=== PATIENT | female | born 1980 | race Caucasian/White ===

== ENCOUNTER 2018-09-20 05:07 | Inpatient (IN) ==
--- NOTE | 2018-09-11 12:16 | Anesthesiology Consultation ---
Date of Service September 11, 2018 Assessment & Plan (1) Encounter for pre-operative examination: Chart Review Chart Review: Acceptable Risk for Surgery and Patient seen in Pre Admission Testing Consults Requested none Teaching & Discussion Pre-Anesthesia Teaching/Discussion Notes: Instructed NPO after midnight before surgery, except medications with 15 cc of water. Medication instructions provided according to the PAT guidelines. History Surgery Operation Date: 09/20/18 07:00 Proposed Procedures p Laparoscopic Assisted Vaginal Hysterectomy, Possible Laparotomy and Cystoscopy - Mo Will MD Height/Weight Height: 5 ft 8 in Weight: 77.6 kg Allergies Allergy/AdvReac Type Severity Reaction Status Date / Time Penicillins Allergy PT WAS Verified 09/06/18 13:43 TOLD SHE HAD A "MODERATE RXN" codeine AdvReac ITCHING Verified 09/06/18 13:43 Medications Home Medications Medication Instructions Recorded Confirmed Last Taken fluticasone [Flonase Allergy 1 spray INTRANASAL DAILY PRN 09/06/18 09/06/18 Unknown Relief] ibuprofen 800 mg PO TID PRN 09/06/18 09/06/18 Unknown lactobacillus combination no.4 3,000 mmu cells PO QAM 09/06/18 09/06/18 Unknown [Probiotic] loratadine 10 mg PO QAM 09/06/18 09/06/18 Unknown Past Medical History Medical History Eczema IBS (irritable bowel syndrome) Kidney stones Medical marijuana use Uses each evening, vaporizes Seasonal allergies Past Surgical History Surgical History History of dental surgery History of laparoscopy DIAGNOSTIC Past Anesthesia History No Hx of Anesthesia Complications and No Family Hx of Anesthesia Complications History of PONV No Motion Sickness Screening History of Motion Sickness: No Social History Smoking Status: Current every day smoker Smoking cigarettes per day: Smokes 1-2 cigarettes per day Do You Dip or Chew Tobacco: No Hx Alcohol Use: Yes Alcohol type: other alcohol intake frequency: holidays/special occasions only Alcohol Intake Frequency Comment: SOCIAL DRINK Hx Substance Use: No substance use type: does not use Exercise / Class Metabolic Activity II 4-5 Yardwork/Stairs/Walk up hill (Able to climb FOS. Denies CP or SOB. ) Review of Systems Patient denies chest pain, shortness of breath, dyspnea on exertion, joint pain , reflux (rare), cough, wheezing, palpitations. Physical Exam Vital Signs BP: 125/64 P: 72 R: 16 T: 98.3 SPO2: 98% on RA ENMT Thyromental Distance: > or= 3.5 Finger Breadths (4) Mallampati Class: II Neck normal visual inspection and trachea midline; neck extension not limited Respiratory normal respiratory effort Auscultation: lungs clear to auscultation bilaterally Cardiovascular Rate/Rhythm: regular rate and regular rhythm Heart Sounds: no murmur Vessels: no carotid bruit Neurologic moves all extremities Psychiatric Orientation: alert and oriented x 3 Testing Laboratory Results 09/11/18 12:30
--- NOTE | 2018-09-11 12:22 | PAT Medication Instructions ---
Medication Instructions Date of Service September 11, 2018 Home Medications fluticasone [Flonase Allergy] 1 spray INTRANASAL DAILY NEEDED ibuprofen 800 mg PO TID NEEDED lactobacillus combination no.4 [Probiotic] 3,000 mmu cells PO QAM loratadine 10 mg PO QAM ASK your surgeon for instructions ibuprofen 800 mg PO TID NEEDED DO NOT take the morning of surgery lactobacillus combination no.4 [Probiotic] 3,000 mmu cells PO QAM fluticasone [Flonase Allergy] 1 spray INTRANASAL DAILY NEEDED Take morning of surgery With a small sip of water, OTHERWISE NOTHING TO EAT OR DRINK AFTER MIDNIGHT: loratadine 10 mg PO QAM Take evening before surgery Medical Marijuana Other Notes If you have any questions please call us at [phone] or [phone] or [phone] or [phone]
[2018-09-11 13:20] LABS: Basophils # (auto) 0.01 K/uL (0-0.2); Basophils % (auto) 0.2 %; Eosinophils # (auto) 0.08 K/uL (0-0.5); Eosinophils % (auto) 1.5 %; Hematocrit (blood only) 36.4 % (37-47); Hemoglobin 12.1 g/dL (12.0-16.0); Immature Granulocytes # (auto) 0.01 K/uL (0.00-0.02); Immature Granulocytes % (auto) 0.2 %; Lymphocytes # (auto) 1.28 K/uL (1.2-3.4); Lymphocytes % (auto) 23.7 %; Mean Corpuscular Hgb Conc 33.2 g/dL (32-36); Mean Corpuscular Volume 95.3 fL (80-100); Mean Platelet Volume 10.8 fL (7.4-10.4); Monocytes # (auto) 0.46 K/uL (0.11-0.59); Monocytes % (auto) 8.5 %; Neutrophils # (auto) 3.57 K/uL (1.4-6.5); Neutrophils % (auto) 65.9 %; Platelet Count 181 K/uL (130-400); RDW Coefficient of Variation 13.2 % (11.5-14.5); RDW Standard Deviation 45.9 fL (36.4-46.3); Red Blood Count 3.82 M/uL (4.2-5.4); White Blood Count 5.41 K/uL (4.8-10.8)
[~2018-09-20 05:07] MED LIST: CEFAZOLIN - ALLERGY NOTED TO ORDERED MEDICATION SCH
[2018-09-20] MEDS ORDERED: CEFAZOLIN 2000MG 2,000 MG/15 ML SYR IV SCH ×2 (06:00→07:00)
[2018-09-20] MEDS ORDERED: LR 15ML/HR IV SCH (06:00)
[2018-09-20] MEDS ORDERED: LACTATED RINGER'S 1,000 ML IV SCH ×2 (06:00→11:00)
[2018-09-20] MEDS ORDERED: PROPOFOL IV EMULSION 10 MG/ML 20 ML VIAL IV ONE (06:29)
[2018-09-20] MEDS ORDERED: LIDOCAINE HCL 2% 2 ML VIAL/AMP(20MG/ML) INFIL ONE (06:29)
[2018-09-20] MEDS ORDERED: ONDANSETRON INJ 2 MG/ML 2 ML VIAL ONE (06:29)
[2018-09-20] MEDS ORDERED: DEXAMETHASONE SOD INJ 4 MG/ML VIAL ONE (06:29)
[2018-09-20] MEDS ORDERED: GLYCOPYRROLATE 0.2 MG/ML VIAL ONE ×2 (06:29→10:17)
[2018-09-20] MEDS ORDERED: NEOSTIGMINE METHYLSULFATE 5 MG/5 ML SYR ONE (06:29)
[2018-09-20] MEDS ORDERED: MIDAZOLAM HCL 1 MG/ML 2ML VIAL ONE (06:30)
[2018-09-20] MEDS ORDERED: fentaNYL citrate 100 MCG/2 ML VIAL ONE ×3 (06:30→12:22)
[2018-09-20] MEDS ORDERED: ROCURONIUM BROMIDE 10 MG/ML 5 ML VIAL ONE ×3 (06:35→09:03)
[2018-09-20] MEDS ORDERED: ACETAMINOPHEN 1000 MG/100 ML IV IV ONE (06:41)
--- NOTE | 2018-09-20 06:54 | History & Physical Bridge Note ---
Date of Service September 20, 2018 History & Physical Bridge Note I have examined the patient, reviewed the History & Physical and in the interval since the performance of the History & Physical I have noted the following changes of clinical significance: no changes noted
[2018-09-20] MEDS ORDERED: BUPIVACAINE 0.5 % 5 MG/1 ML MPF 30ML VIAL ONE (07:12)
[2018-09-20] MEDS ORDERED: METHYLENE BLUE 0.5% 10 ML VIAL ONE (07:13)
[2018-09-20] MEDS ORDERED: PROMETHAZINE HCL 12.5 MG in SODIUM CHLORIDE 0.9% 50 ML IV PRN ×2 (09:58→10:51)
[2018-09-20] MEDS ORDERED: FLUMAZENIL 0.1 MG/1 ML 10 ML VIAL IV PRN (09:58)
[2018-09-20] MEDS ORDERED: ONDANSETRON INJ 2 MG/ML 2 ML VIAL IV PRN ×2 (09:58→10:51)
[2018-09-20] MEDS ORDERED: ATROPINE SULFATE 0.1 MG/ML 10ML SYR IV PRN ×2 (09:58→12:08)
[2018-09-20] MEDS ORDERED: NALOXONE HCL 0.4 MG/1 ML VIAL/CARP IV PRN (09:58)
[2018-09-20] MEDS ORDERED: ePHEDrine sulfate 50 MG/ML AMP IV PRN ×2 (09:58→12:08)
--- NOTE | 2018-09-20 10:33 | Post Operative Brief Note ---
Immediate Post Op Note v1 Date of Surgery September 20, 2018 Pre & Post Diagnosis Operation Date: 09/20/18 07:00 Pre-Op Diagnosis: Adenomyosis Post-Op Diagnosis: Adenomyosis Procedure Operation Date: 09/20/18 07:00 Actual Procedures p Laparoscopic Assisted Vaginal Hysterectomy, Cystoscopy(Not Applicable) - Mo Will MD Surgeon Mo Will MD Bar Back dr ring Estimated Blood Loss 150 Findings Consistent with Post-Op Diagnosis Drains Sanchez Catheter and Glory Drain
[2018-09-20] MEDS ORDERED: HYDROmorphone INJ 1 MG/ML SYRINGE ONE (10:43)
[2018-09-20] MEDS: HYDROmorphone INJ 1 MG/ML SYRINGE IV PRN ×8 (10:44→11:35)
[2018-09-20] MEDS ORDERED: PROMETHAZINE HCL 25 MG in SODIUM CHLORIDE 0.9% 50 ML IV PRN (10:51)
[2018-09-20] MEDS ORDERED: MAGNESIUM HYDROXIDE SUSP 30 ML UDC PO PRN (10:51)
[2018-09-20] MEDS ORDERED: BISACODYL 10 MG SUPP PR PRN (10:51)
[2018-09-20] MEDS ORDERED: OXYCODONE/ACETAMINOPHEN 5mg/325mg TAB PO PRN (10:51)
[2018-09-20] MEDS ORDERED: KETOROLAC 30 MG/ML VIAL IV PRN (10:51)
[2018-09-20] MEDS ORDERED: KETOROLAC 30 MG/ML VIAL ONE (11:16)
[2018-09-20] MEDS ORDERED: LORazepam 1 MG/2 ML VIAL IV STA (11:38)
[2018-09-20] MEDS ORDERED: MoRPHine SULFATE 4 MG/ML 1 ML CARP\\VIAL IV STA ×3 (11:40→13:53)
[2018-09-20] MEDS ORDERED: LORazepam 2 MG/4 ML VIAL ONE (11:41)
[2018-09-20] MEDS ORDERED: MoRPHine SULFATE 4 MG/ML 1 ML CARP\\VIAL ONE ×2 (11:52→15:59)
--- NOTE | 2018-09-20 12:25 | Anesthesiology Progress Note ---
Date of Service September 20, 2018 Anesthesia Post Procedure Vital Signs Vital Signs: Temp Pulse Pulse Resp BP BP Pulse Ox 09/20/18 12:10 85 15 120/54 L 97 09/20/18 12:00 91 H 15 106/51 L 98 09/20/18 11:50 92 H 16 106/64 98 09/20/18 11:40 106 H 20 137/93 98 09/20/18 11:30 94 H 15 145/81 H 97 09/20/18 11:20 89 15 169/68 H 99 09/20/18 11:10 82 15 128/79 99 09/20/18 11:00 86 15 131/69 99 09/20/18 10:50 96 H 15 90/68 L 99 09/20/18 10:42 36.2 C L 92 H 16 102/78 100 09/20/18 05:38 36.8 C 68 18 121/86 97 Pain Intensity Lower Abdomen: Pain Intensity: 7 Notes Mental Status: alert / awake / arousable Patient Amnestic to Procedure: Yes Nausea / Vomiting: adequately controlled Pain: adequately controlled Airway Patency, RR, SpO2: stable & adequate BP & HR: stable & adequate Hydration State: stable & adequate Anesthetic Complications: no major complications apparent
[2018-09-20] MEDS: OXYCODONE/ACETAMINOPHEN 5mg/325mg TAB PO PRN (13:26)
[2018-09-20] MEDS ORDERED: MoRPHine SULFATE 2 MG/ML CARP IV PRN (15:54)
[2018-09-20] MEDS: MoRPHine SULFATE 4 MG/ML 1 ML CARP\\VIAL IV PRN ×5 (16:01→23:46)
[2018-09-20] MEDS: SIMETHICONE 80 MG CHEW PO PRN (16:36)
[2018-09-20] MEDS: DOCUSATE SODIUM 100 MG CAP PO SCH (20:19)
[2018-09-20] MEDS: IBUPROFEN 600 MG TAB PO PRN (23:12)
[2018-09-21] MEDS: OXYCODONE/ACETAMINOPHEN 5mg/325mg TAB PO PRN ×3 (01:47→09:47)
[2018-09-21] MEDS: IBUPROFEN 600 MG TAB PO PRN ×2 (03:45→07:58)
[2018-09-21 06:35] LABS: Basophils # (auto) 0.01 K/uL (0-0.2); Basophils % (auto) 0.1 %; Eosinophils # (auto) 0.02 K/uL (0-0.5); Eosinophils % (auto) 0.3 %; Hematocrit (blood only) 30.2 % (37-47); Hemoglobin 10.1 g/dL (12.0-16.0); Immature Granulocytes # (auto) 0.02 K/uL (0.00-0.02); Immature Granulocytes % (auto) 0.3 %; Lymphocytes # (auto) 1.59 K/uL (1.2-3.4); Lymphocytes % (auto) 20.9 %; Mean Corpuscular Hgb Conc 33.4 g/dL (32-36); Mean Corpuscular Volume 94.7 fL (80-100); Mean Platelet Volume 10.2 fL (7.4-10.4); Monocytes # (auto) 0.94 K/uL (0.11-0.59); Monocytes % (auto) 12.4 %; Neutrophils # (auto) 5.01 K/uL (1.4-6.5); Platelet Count 160 K/uL (130-400); RDW Coefficient of Variation 12.8 % (11.5-14.5); RDW Standard Deviation 44.5 fL (36.4-46.3); Red Blood Count 3.19 M/uL (4.2-5.4); White Blood Count 7.59 K/uL (4.8-10.8)
[2018-09-21 07:09] LABS: Creatinine Clr Calc Pharmacy 96.6 ml/min; Est GFR (Non-African American) 88.8; Potassium 3.7 mmol/L (3.5-5.1)
[2018-09-21] MEDS: DOCUSATE SODIUM 100 MG CAP PO SCH (07:59)
[2018-09-21] MEDS: SIMETHICONE 80 MG CHEW PO PRN (09:46)
--- NOTE | 2018-09-21 10:47 | Anesthesiology Progress Note ---
Date of Service September 21, 2018 Anesthesia Post Procedure Vital Signs Vital Signs: Temp Pulse Pulse Resp BP Pulse Ox 09/21/18 07:30 37.1 C 73 16 112/68 98 09/21/18 03:45 36.9 C 77 16 113/78 98 09/20/18 23:05 37.1 C 90 16 128/79 98 09/20/18 20:10 37.0 C 89 16 121/78 96 09/20/18 15:45 36.9 C 117 H 20 146/81 H 96 09/20/18 14:35 36.9 C 90 18 130/71 95 09/20/18 13:45 36.9 C 88 18 98/54 L 95 09/20/18 13:15 36.7 C 88 18 106/62 94 09/20/18 12:45 36.7 C 81 18 102/52 L 96 09/20/18 12:20 36.8 C 85 15 101/52 L 97 09/20/18 12:10 85 15 120/54 L 97 09/20/18 12:00 91 H 15 106/51 L 98 09/20/18 11:50 92 H 16 106/64 98 09/20/18 11:40 106 H 20 137/93 98 09/20/18 11:30 94 H 15 145/81 H 97 09/20/18 11:20 89 15 169/68 H 99 09/20/18 11:10 82 15 128/79 99 09/20/18 11:00 86 15 131/69 99 09/20/18 10:50 96 H 15 90/68 L 99 Pain Intensity Lower Abdomen: Pain Intensity: 6 Notes Mental Status: alert / awake / arousable Patient Amnestic to Procedure: Yes Nausea / Vomiting: adequately controlled Pain: adequately controlled Airway Patency, RR, SpO2: stable & adequate BP & HR: stable & adequate Hydration State: stable & adequate Anesthetic Complications: no major complications apparent and Pt Satisfied with anesthetic care
--- NOTE | 2018-09-21 11:07 | Gynecologic Progress Note ---
Date of Service September 21, 2018 Assessment & Plan (1) Menorrhagia: LAVH Day #1 Pt doing well dich home with instructions (2) Postop check: Subjective Review of Systems All systems reviewed & are unremarkable except as noted in HPI & below Physical Exam 2 Vital Signs (Past 24 Hours): Last Vital Signs Temp 37.1 C 09/21/18 07:30 Pulse 73 09/21/18 07:30 Resp 16 09/21/18 07:30 BP 112/68 09/21/18 07:30 Pulse Ox 98 09/21/18 07:30 Constitutional: WD/WN, vitals as above Eyes: PERRL, conjunctivae normal, anicteric sclerae ENMT: external ear and nose normal, oropharynx normal Neck: trachea midline, no thyromegaly Respiratory: normal respiratory effort, lungs clear to auscultation Cardiovascular: RRR, no murmur, no edema Chest (Breasts): normal inspection/palpation of breasts Gastrointestinal (Abdomen): normal bowel sounds, soft, nontender, no hepatosplenomegaly Musculoskeletal: no cyanosis or clubbing, extremities motor strength 5/5 Skin: + incision (Incision clean,dry and intact) Neurologic: patellar DTR's 2+ bilat, sensation intact Psychiatric: A+Ox3, euthymic affect Genitourinary: no vaginal lesions, no adnexal mass Lymphatic: no cervical or axillary lymphadenopathy
--- NOTE | 2018-09-21 18:49 | Operative Report ---
DATE OF OPERATION: 09/20/2018 INDICATION FOR PROCEDURE: This is a 38-year-old with adenomyosis and menorrhagia, failed medical therapy. The patient was scheduled to undergo a laparoscopic-assisted vaginal hysterectomy. PREOPERATIVE DIAGNOSES: 1. Adenomyosis. 2. Menorrhagia, failed medical therapy. POSTOPERATIVE DIAGNOSES. 1. Adenomyosis. 2. Menorrhagia, failed medical therapy. PROCEDURES: 1. Laparoscopic assisted vaginal hysterectomy. 2. Cystoscopy. SURGEON: Dr. Will. NANOFABRICATION SPECIALIST: Dr. Wagner. ANESTHESIA: General. ANESTHESIOLOGIST: Dr. Willingham is attending for anesthesia. ESTIMATED BLOOD LOSS: 150 mL URINE OUTPUT: 100 mL clear urine at the end of the procedure. IV FLUIDS: 1400 mL. PATHOLOGY: Uterus and cervix. COMPLICATIONS: None. DRAINS: None. DISPOSITION: Stable to recovery room. DESCRIPTION OF PROCEDURE: The patient was taken to the operating room where she was prepped and draped in normal sterile fashion. Timeout was called. A Sanchez catheter was inserted into the bladder. A weighted speculum was placed in the vagina. A Flourish Prenatal uterine manipulator was introduced in the uterine cavity to help manipulate the uterus during laparoscopy. Attention was paid to the abdominal part of the procedure where an infraumbilical incision was made in the umbilicus with a scalpel. Fascia was grabbed and a Veress needle introduced into the abdomen at a 45-degree angle while tenting up the abdomen. Intra-abdominal placement was confirmed with a water filled syringe. The abdomen was insufflated with CO2 gas up to 3 liters. Veress needle was removed. A trocar with a laparoscope under visualization was introduced into the abdominal cavity. Intra-abdominal placement showed an 8-10 weeks' size globular uterus, both ovaries appeared grossly normal. Pelvis did not have any significant adhesions. Three more accessory ports were placed under direct visualization. These were 5 mm ports. The initial port was placed in the abdomen was an 11 mm port. The left round ligament was identified, grabbed with a retractor and a 5 mm LigaSure used to transect the round ligament. Same procedure was performed in the contralateral side. The bladder flap was sharply dissected using traction and countertraction with the LigaSure. Same procedure was performed on the posterior broad ligament. The uterines were identified and fulgurated and cauterized using the LigaSure. Dissection was carried down the broad ligament through the cardinal ligaments. At this point, the VCare could be palpated and visualized from below. Electrocautery from the LigaSure was used to perform the colpotomy. The colpotomy was successfully performed anteriorly; however, had some difficulty performing the posterior colpotomy because of the size of the uterus. Decision was therefore made to perform the rest of the hysterectomy vaginally. All abdominal instruments including the laparoscope and the retractors and the LigaSure were removed from the abdomen. The trocars were opened and the CO2 gas was turned off. Vaginally, I placed a weighted speculum in the vagina after the uterine manipulator was removed. At this point, I could see the colpotomy was performed anteriorly. Posteriorly, I injected lidocaine for hemostasis in the posterior part of the cervix. A circular incision was made and the posterior cul-de-sac was entered sharply after the dissection. The longer heavy weighted speculum was repositioned. The uterosacrals were grabbed with Jim clamps, they were cut and suture ligated on both sides. I continued the rest of the dissection using Jim clamps. The uterus was removed vaginally. There was good hemostasis at this point. Both uterosacrals were tied together and the vaginal cuff was closed using running Vicryl sutures. I returned to the abdominal part of the procedure where the abdomen was once again insufflated with CO2 gas, I was able to visualize the cuff closure which appeared to be intact and there was good hemostasis. More irrigation was used to irrigate the abdomen. Hemostasis was once again confirmed through the laparoscope. All instruments were removed from the abdomen including the laparoscope and the trocars. Attention was paid back to the vaginal part of the procedure where a cystoscopy was performed. The patient had been given indigo carmine earlier. Both urethral orifices could be seen. There was good efflux of urine with dye. The entire bladder cavity appeared grossly normal and was intact. All instruments were removed from the bladder as well as the vagina. Attention was paid back to the abdominal part of the procedure where the skin was closed. The skin and the 5 mm incisions were closed with 4-0 Monocryl. The 11 mm incision #Vicryl was closed in 2 layers. Fascia was grabbed and closed with 0 Vicryl. Skin was closed with 4-0 Vicryl. The patient was returned to recovery in stable condition. I attest to the content of the Intraoperative Record and any orders documented therein. Any exception s are noted below.
--- NOTE | 2018-10-15 13:09 | Discharge Summary ---
Date of Service October 17, 2018 Discharge Data Procedures Performed Operation Date: 09/20/18 07:00 Actual Procedures p Laparoscopic Assisted Vaginal Hysterectomy(Not Applicable) - Mo Will MD s Cystoscopy - Mo Will MD
--- NOTE | 2018-10-17 02:47 | Discharge Summary ---
CHIEF COMPLAINT: 1. Menorrhagia, failed medical therapy. 2. Adenomyosis. HISTORY OF PRESENT ILLNESS: This is a 38-year-old G3, P3 with a long history of adenomyosis. The patient had been seen by Dr.Carnevalle Wilcox and had tried several medical therapy. I have seen me in the office and now wanted permanent treatment, which is a hysterectomy. She had declined endometrial ablation. The patient was admitted at [facility] on 09/20/2018, where she underwent a laparoscopic-assisted vaginal hysterectomy. Details of surgery is in the a surgery note. Surgery was unremarkable. The patient did well. Postop in the recovery, the patient was able to meet all milestones and on postop day #1, which was 09/21/2018, the patient was able to tolerate p.o. food and medication and was discharged home in stable condition. PAST MEDICAL HISTORY: 1. Adenomyosis. 2. Menorrhagia. 3. Eczema. 4. Migraines. 5. History of nephrolithiasis. 6. History of pyelonephritis. PAST SURGICAL HISTORY: 1. Dental surgery. 2. Exploration of the abdomen. 3. Tubal ligation. SOCIAL HISTORY: The patient is a previous smoker. Denies drug or alcohol use. FAMILY HISTORY: Noncontributory. ALLERGIES: THE PATIENT IS ALLERGIC TO PENICILLIN AND CODEINE. REVIEW OF SYSTEMS: Negative except as in HPI. PHYSICAL EXAMINATION: GENERAL: Well-developed, well-nourished white female in no acute distress. VITAL SIGNS: On day of discharge 09/21/2018, patient's vitals were as follows: Temperature 121/86, pulse 73, respirations 16, temperature 37.1. HEART: S1, S2, regular rhythm and rate. LUNGS: Clear to auscultation bilaterally. ABDOMEN: Incision sites from laparoscopy appeared clean, dry and intact. PELVIC: Minimal discharge. EXTREMITIES: No cyanosis, clubbing or edema. LABORATORY DATA: On 09/21/2018, hemoglobin was 10.1, hematocrit was 30.2. CONDITION ON DISCHARGE: Stable. OPERATION: Laparoscopic-assisted vaginal hysterectomy. DISCHARGE DIAGNOSIS: Postoperative after laparoscopic-assisted vaginal hysterectomy. PLAN ON DISCHARGE: The patient is discharged home with instructions regarding activity, diet, followup appointment and medication. YARED
== END 2018-09-21 12:05 | disposition home or self-care (01) | DRG 743 ==
LOC: ASU 05:07 → 4N 10:51
DX: K58.9 Irritable bowel syndrome, unspecified; Z88.5 Allergy status to narcotic agent; N92.0 Excessive and frequent menstruation with regular cycle; Z79.899 Other long term (current) drug therapy; N80.0 Endometriosis of uterus; J30.2 Other seasonal allergic rhinitis; Z87.891 Personal history of nicotine dependence; Z88.0 Allergy status to penicillin